=== PATIENT | female | born 1950 | race Two or more races ===

== ENCOUNTER 2017-03-15 19:47 | Inpatient (IN) | payer MEDICARE, OTHER ==
[~2017-03-15] VITALS: Ht 157.5 cm; Wt 121.4 kg
[2017-03-15] MEDS ORDERED: IPRATROPIUM BROM 0.5 MG/2.5ML INH SOL HHN ONE (20:45)
[2017-03-15] MEDS ORDERED: ALBUTEROL SULF 2.5 MG/0.5ML(0.5%) NEB SOLN HHN ONE (20:45)
[2017-03-15] MEDS ORDERED: methylPREDNISolone SOD SUCC 125 MG/2 ML VL IV ONE (20:45)
[2017-03-15 21:14] LABS: Basophils # (auto) 0.1 uL; Basophils % (auto) 1.3 % (0.0-2.0); Eosinophils # (auto) 0.1 uL; Eosinophils % (auto) 0.6 % (0.0-7.0); Hematocrit 36.6 % (36.0-46.0); Hemoglobin 12.2 g/dL (12.2-16.2); Lymphocytes # (auto) 1.2 uL; Lymphocytes % (auto) 11.4 % (10.0-50.0); Mean Corpuscular Hemoglobin 32.4 pg (28.0-32.0); Mean Corpuscular Hgb Conc. 33.4 g/dL (32.0-36.0); Mean Corpuscular Volume 97.2 fL (80.0-100.0); Monocytes % (auto) 9.6 % (0.0-12.0); Neutrophils # (auto) 7.9 uL; Neutrophils % (auto) 77.1 % (37.0-80.0); Platelet Count (auto) 180 10^3/uL (140-450); Red Blood Cells 3.76 10^6/uL (4.0-5.20); White Blood Cell 10.2 10^3/uL (4.4-10.8)
[2017-03-15 21:33] LABS: Alanine Aminotransferase 19 U/L (13-56); Albumin 3.2 g/dL (3.4-5.0); Alkaline Phosphatase 51 U/L (45-117); Anion Gap 7 (5-15); Aspartate Aminotransferase 17 U/L (15-37); BUN/Creatinine Ratio 16.1; Bilirubin, Total 1.3 mg/dL (0.2-1.0); Blood Urea Nitrogen 14 mg/dL (7-18); Calcium 8.8 mg/dL (8.5-10.1); Carbon Dioxide 34 mmol/L (21-32); Chloride 95 mmol/L (98-107); GFR African American 84 mL/min; GFR Non-African American 69 mL/min; Glucose 117 mg/dL (74-106); Magnesium 1.7 mg/dL (1.6-2.6); Potassium 4.2 mmol/L (3.5-5.1); Sodium 136 mmol/L (136-145); Total Protein 8.4 g/dL (6.4-8.2)
[2017-03-15] MEDS ORDERED: cefTRIAXone 1GM/10ml IVPUSH 10 ML IV ONE (23:30)
[2017-03-15] MEDS ORDERED: methylPREDNISolone SOD SUCC 125 MG/2 ML VL ONE (23:36)
[2017-03-16] VITALS (7 sets, daily range): BP systolic 128–162; BP diastolic 69–91
[2017-03-16] MEDS ORDERED: MORPHINE SULFATE 10 MG/ML INJ 1ML SDV IV PRN
[2017-03-16] MEDS ORDERED: NITROGLYCERIN 0.4 MG SL TAB SL PRN
[2017-03-16] MEDS ORDERED: DOCUSATE SOD 100 MG CAP PO PRN
[2017-03-16] MEDS ORDERED: AZITHROMYCIN 500MG/ 250ML 250 ML IV ONE ×2 (00:38)
[2017-03-16] MEDS ORDERED: AZITHROMYCIN 500MG/ 250ML 250 ML IV SCH (10:00)
[2017-03-16 10:22] LABS: Basophils # (auto) 0 uL; Basophils % (auto) 0.1 % (0.0-2.0); Eosinophils # (auto) 0 uL; Hematocrit 36.2 % (36.0-46.0); Lymphocytes # (auto) 0.6 uL; Lymphocytes % (auto) 6.7 % (10.0-50.0); Mean Corpuscular Hgb Conc. 33.1 g/dL (32.0-36.0); Mean Corpuscular Volume 96.8 fL (80.0-100.0); Monocytes # (auto) 0.1 uL; Monocytes % (auto) 1.7 % (0.0-12.0); Neutrophils # (auto) 7.9 uL; Neutrophils % (auto) 91.5 % (37.0-80.0); Platelet Count (auto) 172 10^3/uL (140-450); Red Blood Cells 3.73 10^6/uL (4.0-5.20); Red Cell Distribution Width 13.9 % (11.8-14.3); White Blood Cell 8.6 10^3/uL (4.4-10.8)
[2017-03-16 10:46] LABS: Albumin 2.9 g/dL (3.4-5.0); Bilirubin, Total 0.9 mg/dL (0.2-1.0); Calcium 8.6 mg/dL (8.5-10.1); Potassium 3.9 mmol/L (3.5-5.1); Total Protein 8.3 g/dL (6.4-8.2)
[2017-03-16] MEDS: cefTRIAXone 1GM/10ml IVPUSH 10 ML IV SCH (11:16)
[2017-03-16] MEDS: SPIRONOLACTONE 25 MG TAB PO SCH (11:17)
[2017-03-16] MEDS: CARVEDILOL 3.125 MG TAB PO SCH ×2 (11:17→21:50)
[2017-03-16] MEDS: FAMOTIDINE 20 MG TAB PO SCH ×2 (11:18→21:48)
[2017-03-16] MEDS: LISINOPRIL 10 MG TAB PO SCH (11:18)
[2017-03-16] MEDS: FUROSEMIDE 40 MG TAB PO SCH (11:18)
[2017-03-16] MEDS: ENOXAPARIN SOD 40 MG/0.4 ML SYRINGE SC SCH (11:19)
[2017-03-16] MEDS: HYDROcodone-ACET 5/325MG TAB PO PRN ×2 (11:43→17:31)
[2017-03-16] MEDS: CYCLOBENZAPRINE HCL 10 MG TAB PO PRN ×2 (11:43→17:47)
[2017-03-16] MEDS: MORPHINE SULFATE 10 MG/ML INJ 1ML SDV IV PRN ×2 (12:23→20:05)
[2017-03-16] MEDS ORDERED: DEXTROSE (50%) 50ML SYRG IV PRN (15:00)
[2017-03-16] MEDS ORDERED: VANCOMYCIN PER PHARMACY 0 MG IV SCH (16:15)
[2017-03-16] MEDS: METHADONE HCL 10 MG TAB PO SCH (17:06)
[2017-03-16] MEDS: InsuLIN REG 1unit/0.01ml Soln (100units/ml) SC SCH ×2 (17:21→21:56)
[2017-03-16] MEDS: VANCOMYCIN 1,250 MG in D5W 5% 250 ML IV SCH (17:22)
[2017-03-16] MEDS: ACCU-CHEK COMFORT CURVE STRIP VI SCH ×2 (17:23→21:56)
[2017-03-16] MEDS: IPRATROPIUM BROM 0.5 MG/2.5ML INH SOL NEB SCH ×2 (19:22→22:43)
[2017-03-16] MEDS: ALBUTEROL SULF 2.5 MG/0.5ML(0.5%) NEB SOLN NEB SCH ×2 (19:23→22:43)
[2017-03-16 23:30] LABS: Urine Bacteria FEW /hpf (None Seen); Urine Blood Negative /uL (Negative); Urine Specific Gravity 1.021 (1.001-1.035); Urine WBC 1 /hpf (0 - 5)
[2017-03-17] MEDS ORDERED: FURO40TA4 PO (00:43)
[2017-03-17] MEDS ORDERED: FLUT0.05 NAS (00:43)
[2017-03-17] MEDS ORDERED: POTA20TA53 PO (00:43)
[2017-03-17] MEDS ORDERED: ALBU1SYP NEB (00:43)
[2017-03-17] MEDS ORDERED: CYCL1TAB18 PO (00:43)
[2017-03-17] MEDS ORDERED: SENN1TAB14 PO (00:43)
[2017-03-17] MEDS ORDERED: IPRIH INH (00:43)
[2017-03-17] MEDS ORDERED: DIPH25CA66 PO (00:43)
[2017-03-17] MEDS ORDERED: ASPI81TA27 PO (00:43)
[2017-03-17] MEDS ORDERED: LISI10TA6 PO (00:43)
[2017-03-17] MEDS ORDERED: CARV6.2551 PO (00:43)
[2017-03-17] MEDS ORDERED: SPIR25TA89 PO (00:43)
[2017-03-17] MEDS ORDERED: METH10T GT (00:43)
[2017-03-17] MEDS ORDERED: CAR3125T OR (00:43)
[2017-03-17] MEDS ORDERED: ALBU1SYP PO (00:43)
[2017-03-17] MEDS ORDERED: LEVO50TA7 PO (00:43)
[2017-03-17] MEDS: MORPHINE SULFATE 10 MG/ML INJ 1ML SDV IV PRN ×5 (01:05→22:07)
[2017-03-17] MEDS: ACETAMINOPHEN 325 MG TAB PO PRN ×2 (01:08→08:22)
[2017-03-17] MEDS: InsuLIN REG 1unit/0.01ml Soln (100units/ml) SC SCH ×5 (02:00→23:48)
[2017-03-17] MEDS: ACCU-CHEK COMFORT CURVE STRIP VI SCH ×5 (02:00→23:49)
[2017-03-17] MEDS: IPRATROPIUM BROM 0.5 MG/2.5ML INH SOL NEB SCH ×6 (02:39→22:38)
[2017-03-17] MEDS: ALBUTEROL SULF 2.5 MG/0.5ML(0.5%) NEB SOLN NEB SCH ×6 (02:39→22:38)
[2017-03-17 04:29] VITALS: BP 142/79
[2017-03-17] MEDS: HYDROcodone-ACET 5/325MG TAB PO PRN ×2 (04:39→09:01)
[2017-03-17] MEDS: VANCOMYCIN 1,250 MG in D5W 5% 250 ML IV SCH ×2 (05:45→18:15)
[2017-03-17] MEDS: CYCLOBENZAPRINE HCL 10 MG TAB PO PRN (06:44)
[2017-03-17 08:11] VITALS: BP 170/86
[2017-03-17 08:33] LABS: Basophils # (auto) 0 uL; Basophils % (auto) 0.1 % (0.0-2.0); Eosinophils # (auto) 0 uL; Hematocrit 37.2 % (36.0-46.0); Hemoglobin 12.3 g/dL (12.2-16.2); Lymphocytes # (auto) 1.1 uL; Lymphocytes % (auto) 8.7 % (10.0-50.0); Mean Corpuscular Hemoglobin 32.3 pg (28.0-32.0); Mean Corpuscular Hgb Conc. 33.1 g/dL (32.0-36.0); Mean Corpuscular Volume 97.4 fL (80.0-100.0); Monocytes # (auto) 1.4 uL; Neutrophils # (auto) 9.9 uL; Neutrophils % (auto) 80.2 % (37.0-80.0); Nucleated Red Blood Cells % 0.1 %; Platelet Count (auto) 197 10^3/uL (140-450); Red Blood Cells 3.82 10^6/uL (4.0-5.20); Red Cell Distribution Width 13.9 % (11.8-14.3); White Blood Cell 12.3 10^3/uL (4.4-10.8)
[2017-03-17 08:36] LABS: Albumin 3.1 g/dL (3.4-5.0); BUN/Creatinine Ratio 24.7; Bilirubin, Total 0.7 mg/dL (0.2-1.0); Calcium 8.9 mg/dL (8.5-10.1); Potassium 3.8 mmol/L (3.5-5.1); Total Protein 8.7 g/dL (6.4-8.2)
[2017-03-17] MEDS: cefTRIAXone 1GM/10ml IVPUSH 10 ML IV SCH (08:51)
[2017-03-17] MEDS ORDERED: VANCOMYCIN PER PHARMACY 0 MG IV SCH (09:15)
[2017-03-17] MEDS ORDERED: VANCOMYCIN 1GM/250ML 250 ML IV ONE (09:15)
[2017-03-17] MEDS: ENOXAPARIN SOD 40 MG/0.4 ML SYRINGE SC SCH (09:46)
[2017-03-17] MEDS: CARVEDILOL 3.125 MG TAB PO SCH ×2 (09:48→21:40)
[2017-03-17] MEDS: SPIRONOLACTONE 25 MG TAB PO SCH (09:49)
[2017-03-17] MEDS: FUROSEMIDE 40 MG TAB PO SCH (09:49)
[2017-03-17] MEDS: FAMOTIDINE 20 MG TAB PO SCH ×2 (09:49→21:40)
[2017-03-17] MEDS: AZITHROMYCIN 250 MG TAB PO SCH (09:49)
[2017-03-17] MEDS: LISINOPRIL 10 MG TAB PO SCH (09:49)
[2017-03-17] MEDS: METHADONE HCL 10 MG TAB PO SCH (09:50)
[2017-03-17] MEDS ORDERED: METHADONE HCL 10 MG TAB PO SCH (10:00)
[2017-03-17 12:36] VITALS: BP 155/94
[2017-03-17] MEDS: HYDROcodone-ACET 10/325MG TAB PO PRN ×2 (16:11→20:43)
[2017-03-17 17:00] VITALS: BP 151/103
[2017-03-17] MEDS ORDERED: DEXTROSE (50%) 50ML SYRG IV PRN (19:45)
[2017-03-17] MEDS: TEMAZEPAM 15 MG CAP PO PRN (21:40)
[2017-03-17 22:00] VITALS: BP 131/71
[2017-03-18] MEDS: IPRATROPIUM BROM 0.5 MG/2.5ML INH SOL NEB SCH ×6 (02:00→22:00)
[2017-03-18] MEDS: ALBUTEROL SULF 2.5 MG/0.5ML(0.5%) NEB SOLN NEB SCH ×6 (02:00→22:00)
[2017-03-18] MEDS: MORPHINE SULFATE 10 MG/ML INJ 1ML SDV IV PRN ×4 (02:07→17:36)
[2017-03-18] MEDS: HYDROcodone-ACET 10/325MG TAB PO PRN ×4 (04:20→20:40)
[2017-03-18 05:24] LABS: Basophils # (auto) 0 uL; Basophils % (auto) 0.5 % (0.0-2.0); Eosinophils # (auto) 0 uL; Eosinophils % (auto) 0.1 % (0.0-7.0); Hematocrit 35.6 % (36.0-46.0); Lymphocytes # (auto) 1.3 uL; Lymphocytes % (auto) 14.7 % (10.0-50.0); Mean Corpuscular Hemoglobin 32.5 pg (28.0-32.0); Mean Corpuscular Hgb Conc. 33.7 g/dL (32.0-36.0); Mean Corpuscular Volume 96.3 fL (80.0-100.0); Monocytes # (auto) 1.1 uL; Monocytes % (auto) 12.3 % (0.0-12.0); Neutrophils # (auto) 6.4 uL; Neutrophils % (auto) 72.4 % (37.0-80.0); Platelet Count (auto) 186 10^3/uL (140-450); Red Cell Distribution Width 13.8 % (11.8-14.3); White Blood Cell 8.9 10^3/uL (4.4-10.8)
[2017-03-18] MEDS: ACCU-CHEK COMFORT CURVE STRIP VI SCH ×4 (05:34→23:27)
[2017-03-18] MEDS: InsuLIN REG 1unit/0.01ml Soln (100units/ml) SC SCH ×4 (05:34→23:28)
[2017-03-18 05:38] VITALS: BP 131/85
[2017-03-18 05:40] LABS: Albumin 2.8 g/dL (3.4-5.0); BUN/Creatinine Ratio 22.4; Bilirubin, Total 0.9 mg/dL (0.2-1.0); Calcium 8.5 mg/dL (8.5-10.1); Potassium 3.8 mmol/L (3.5-5.1); Total Protein 8.1 g/dL (6.4-8.2)
[2017-03-18] MEDS: VANCOMYCIN 1,250 MG in D5W 5% 250 ML IV SCH (05:57)
[2017-03-18 08:47] VITALS: BP 143/75
[2017-03-18 08:48] VITALS: BP 151/86
[2017-03-18] MEDS: cefTRIAXone 1GM/10ml IVPUSH 10 ML IV SCH (09:57)
[2017-03-18] MEDS: VANCOMYCIN 1GM/250ML 250 ML IV SCH ×2 (09:58→21:51)
[2017-03-18] MEDS: ENOXAPARIN SOD 40 MG/0.4 ML SYRINGE SC SCH (09:59)
[2017-03-18] MEDS: ACETAMINOPHEN 325 MG TAB PO PRN ×2 (09:59→18:25)
[2017-03-18] MEDS: AZITHROMYCIN 250 MG TAB PO SCH (10:00)
[2017-03-18] MEDS: FAMOTIDINE 20 MG TAB PO SCH ×2 (10:00→21:51)
[2017-03-18] MEDS: SPIRONOLACTONE 25 MG TAB PO SCH (10:00)
[2017-03-18] MEDS: METHADONE HCL 10 MG TAB PO SCH (10:01)
[2017-03-18] MEDS: FUROSEMIDE 40 MG TAB PO SCH (10:02)
[2017-03-18] MEDS: LISINOPRIL 10 MG TAB PO SCH (10:02)
[2017-03-18] MEDS: CARVEDILOL 3.125 MG TAB PO SCH ×2 (10:02→21:51)
[2017-03-18 13:07] VITALS: BP 145/88
[2017-03-18 17:08] VITALS: BP 151/78
[2017-03-18 21:39] VITALS: BP 127/92
[2017-03-18] MEDS: TEMAZEPAM 15 MG CAP PO PRN (21:51)
[2017-03-19] MEDS: HYDROcodone-ACET 10/325MG TAB PO PRN ×4 (00:40→22:54)
[2017-03-19] MEDS: ALBUTEROL SULF 2.5 MG/0.5ML(0.5%) NEB SOLN NEB SCH ×6 (02:36→23:35)
[2017-03-19] MEDS: IPRATROPIUM BROM 0.5 MG/2.5ML INH SOL NEB SCH ×6 (02:36→23:35)
[2017-03-19] MEDS: MORPHINE SULFATE 10 MG/ML INJ 1ML SDV IV PRN ×4 (04:31→21:15)
[2017-03-19 04:54] VITALS: BP 153/88
[2017-03-19] MEDS: InsuLIN REG 1unit/0.01ml Soln (100units/ml) SC SCH ×3 (05:41→17:50)
[2017-03-19] MEDS: ACCU-CHEK COMFORT CURVE STRIP VI SCH ×3 (05:41→17:50)
[2017-03-19 08:33] VITALS: BP 145/77
[2017-03-19] MEDS: cefTRIAXone 1GM/10ml IVPUSH 10 ML IV SCH (09:28)
[2017-03-19] MEDS: FAMOTIDINE 20 MG TAB PO SCH ×2 (09:29→22:19)
[2017-03-19] MEDS: SPIRONOLACTONE 25 MG TAB PO SCH (09:30)
[2017-03-19] MEDS: AZITHROMYCIN 250 MG TAB PO SCH (09:30)
[2017-03-19] MEDS: LISINOPRIL 10 MG TAB PO SCH (09:31)
[2017-03-19] MEDS: CARVEDILOL 3.125 MG TAB PO SCH ×2 (09:31→22:18)
[2017-03-19] MEDS: FUROSEMIDE 40 MG TAB PO SCH (09:31)
[2017-03-19] MEDS: ENOXAPARIN SOD 40 MG/0.4 ML SYRINGE SC SCH (09:33)
[2017-03-19] MEDS: METHADONE HCL 10 MG TAB PO SCH (09:33)
[2017-03-19 09:44] LABS: Albumin 2.6 g/dL (3.4-5.0); BUN/Creatinine Ratio 21.7; Bilirubin, Total 0.8 mg/dL (0.2-1.0); Calcium 8.6 mg/dL (8.5-10.1); Potassium 3.8 mmol/L (3.5-5.1)
[2017-03-19] MEDS: VANCOMYCIN 1GM/250ML 250 ML IV SCH ×2 (10:01→22:19)
[2017-03-19 13:06] VITALS: BP 164/107
[2017-03-19 17:24] VITALS: BP 165/99
[2017-03-19 20:00] VITALS: BP 139/88
[2017-03-19 21:50] VITALS: BP 139/88
[2017-03-19] MEDS: TEMAZEPAM 15 MG CAP PO SCH (22:19)
[2017-03-20] VITALS (9 sets, daily range): BP systolic 115–157; BP diastolic 77–96
[2017-03-20] MEDS: ALBUTEROL SULF 2.5 MG/0.5ML(0.5%) NEB SOLN NEB SCH ×6 (02:00→21:51)
[2017-03-20] MEDS: IPRATROPIUM BROM 0.5 MG/2.5ML INH SOL NEB SCH ×6 (02:00→21:51)
[2017-03-20] MEDS: InsuLIN REG 1unit/0.01ml Soln (100units/ml) SC SCH ×4 (06:00→17:53)
[2017-03-20] MEDS: ACCU-CHEK COMFORT CURVE STRIP VI SCH ×4 (06:13→17:53)
[2017-03-20] MEDS: cefTRIAXone 1GM/10ml IVPUSH 10 ML IV SCH (09:54)
[2017-03-20] MEDS: VANCOMYCIN 1GM/250ML 250 ML IV SCH ×2 (09:55→22:13)
[2017-03-20] MEDS: SPIRONOLACTONE 25 MG TAB PO SCH (09:55)
[2017-03-20] MEDS: FUROSEMIDE 40 MG TAB PO SCH (09:55)
[2017-03-20] MEDS: CARVEDILOL 3.125 MG TAB PO SCH ×2 (09:55→22:13)
[2017-03-20] MEDS: FAMOTIDINE 20 MG TAB PO SCH ×2 (09:56→22:14)
[2017-03-20] MEDS: METHADONE HCL 10 MG TAB PO SCH (09:56)
[2017-03-20] MEDS: AZITHROMYCIN 250 MG TAB PO SCH (09:56)
[2017-03-20] MEDS: LISINOPRIL 10 MG TAB PO SCH (09:56)
[2017-03-20] MEDS: ENOXAPARIN SOD 40 MG/0.4 ML SYRINGE SC SCH (09:57)
[2017-03-20] MEDS: HYDROcodone-ACET 10/325MG TAB PO PRN (12:53)
[2017-03-20] MEDS: CYCLOBENZAPRINE HCL 10 MG TAB PO PRN (12:53)
[2017-03-20] MEDS: METHOCARBAMOL 500 MG TAB PO SCH ×2 (15:11→22:14)
[2017-03-20] MEDS: MORPHINE SULFATE 10 MG/ML INJ 1ML SDV IV PRN (17:53)
[2017-03-20] MEDS: TEMAZEPAM 15 MG CAP PO SCH (22:14)
[2017-03-21] MEDS: IPRATROPIUM BROM 0.5 MG/2.5ML INH SOL NEB SCH ×6 (02:00→22:08)
[2017-03-21] MEDS: ALBUTEROL SULF 2.5 MG/0.5ML(0.5%) NEB SOLN NEB SCH ×6 (02:00→22:08)
[2017-03-21] MEDS: MORPHINE SULFATE 10 MG/ML INJ 1ML SDV IV PRN ×2 (03:05→11:18)
[2017-03-21 05:00] VITALS: BP 112/64
[2017-03-21] MEDS: ACCU-CHEK COMFORT CURVE STRIP VI SCH ×5 (05:55→23:56)
[2017-03-21] MEDS: InsuLIN REG 1unit/0.01ml Soln (100units/ml) SC SCH ×5 (05:55→23:56)
[2017-03-21 06:13] LABS: Basophils # (auto) 0.1 uL; Basophils % (auto) 1.1 % (0.0-2.0); Eosinophils # (auto) 0.1 uL; Eosinophils % (auto) 1.6 % (0.0-7.0); Hematocrit 37.5 % (36.0-46.0); Hemoglobin 12.5 g/dL (12.2-16.2); Lymphocytes # (auto) 1.7 uL; Mean Corpuscular Hemoglobin 32.2 pg (28.0-32.0); Mean Corpuscular Hgb Conc. 33.4 g/dL (32.0-36.0); Mean Corpuscular Volume 96.4 fL (80.0-100.0); Monocytes # (auto) 0.8 uL; Neutrophils % (auto) 64.3 % (37.0-80.0); Nucleated Red Blood Cells % 0.1 %; Platelet Count (auto) 249 10^3/uL (140-450); Red Blood Cells 3.89 10^6/uL (4.0-5.20); White Blood Cell 7.7 10^3/uL (4.4-10.8)
[2017-03-21] MEDS: METHOCARBAMOL 500 MG TAB PO SCH ×3 (06:33→22:04)
[2017-03-21 08:00] VITALS: BP 148/97
[2017-03-21 09:09] VITALS: BP 148/97
[2017-03-21] MEDS: SPIRONOLACTONE 25 MG TAB PO SCH (10:10)
[2017-03-21] MEDS: AZITHROMYCIN 250 MG TAB PO SCH (10:11)
[2017-03-21] MEDS: CARVEDILOL 3.125 MG TAB PO SCH ×2 (10:11→22:05)
[2017-03-21] MEDS: FAMOTIDINE 20 MG TAB PO SCH ×2 (10:12→22:04)
[2017-03-21] MEDS: LISINOPRIL 10 MG TAB PO SCH (10:12)
[2017-03-21] MEDS: ENOXAPARIN SOD 40 MG/0.4 ML SYRINGE SC SCH (10:13)
[2017-03-21] MEDS: FUROSEMIDE 40 MG TAB PO SCH (10:13)
[2017-03-21] MEDS: METHADONE HCL 10 MG TAB PO SCH (10:13)
[2017-03-21] MEDS: cefTRIAXone 1GM/10ml IVPUSH 10 ML IV SCH (11:16)
[2017-03-21] MEDS: VANCOMYCIN 1GM/250ML 250 ML IV SCH ×2 (11:16→22:05)
[2017-03-21 12:20] VITALS: BP 136/58
[2017-03-21] MEDS: HYDROcodone-ACET 10/325MG TAB PO PRN (14:56)
[2017-03-21 16:05] VITALS: BP 112/61
[2017-03-21 22:00] VITALS: BP 111/42
[2017-03-21] MEDS: TEMAZEPAM 15 MG CAP PO SCH (22:04)
[2017-03-22] MEDS: IPRATROPIUM BROM 0.5 MG/2.5ML INH SOL NEB SCH ×6 (02:00→22:12)
[2017-03-22] MEDS: ALBUTEROL SULF 2.5 MG/0.5ML(0.5%) NEB SOLN NEB SCH ×6 (02:00→22:12)
[2017-03-22 05:00] VITALS: BP 154/69
[2017-03-22] MEDS: InsuLIN REG 1unit/0.01ml Soln (100units/ml) SC SCH ×4 (05:28→23:49)
[2017-03-22] MEDS: METHOCARBAMOL 500 MG TAB PO SCH ×3 (05:28→21:35)
[2017-03-22] MEDS: ACCU-CHEK COMFORT CURVE STRIP VI SCH ×4 (05:28→23:49)
[2017-03-22 07:51] LABS: Albumin 2.4 g/dL (3.4-5.0); BUN/Creatinine Ratio 21.6; Bilirubin, Total 0.7 mg/dL (0.2-1.0); Calcium 8.7 mg/dL (8.5-10.1); Potassium 3.8 mmol/L (3.5-5.1); Total Protein 7.9 g/dL (6.4-8.2)
[2017-03-22 08:00] VITALS: BP 112/60
[2017-03-22 08:35] VITALS: BP 112/60
[2017-03-22] MEDS: cefTRIAXone 1GM/10ml IVPUSH 10 ML IV SCH (08:35)
[2017-03-22] MEDS: LISINOPRIL 10 MG TAB PO SCH (10:00)
[2017-03-22] MEDS: VANCOMYCIN 1GM/250ML 250 ML IV SCH ×2 (10:00→16:55)
[2017-03-22] MEDS: CARVEDILOL 3.125 MG TAB PO SCH ×2 (10:00→21:35)
[2017-03-22] MEDS: ENOXAPARIN SOD 40 MG/0.4 ML SYRINGE SC SCH (10:44)
[2017-03-22] MEDS ORDERED: ADENOSINE 102 MG in GIVE UN-DILUTED 0 ML IV ONE (11:30)
[2017-03-22 12:43] VITALS: BP 131/66
[2017-03-22] MEDS ORDERED: IPRATROPIUM BROM 0.5 MG/2.5ML INH SOL ONE (13:17)
[2017-03-22] MEDS ORDERED: ALBUTEROL SULF 2.5 MG/0.5ML(0.5%) NEB SOLN ONE (13:17)
[2017-03-22] MEDS: METHADONE HCL 10 MG TAB PO SCH (15:24)
[2017-03-22] MEDS: FAMOTIDINE 20 MG TAB PO SCH ×2 (15:25→21:35)
[2017-03-22] MEDS: AZITHROMYCIN 250 MG TAB PO SCH (15:25)
[2017-03-22] MEDS: SPIRONOLACTONE 25 MG TAB PO SCH (15:25)
[2017-03-22] MEDS: FUROSEMIDE 40 MG TAB PO SCH (15:26)
[2017-03-22] MEDS: CYCLOBENZAPRINE HCL 10 MG TAB PO PRN (15:31)
[2017-03-22] MEDS: MORPHINE SULFATE 10 MG/ML INJ 1ML SDV IV PRN (15:41)
[2017-03-22] MEDS: HYDROcodone-ACET 10/325MG TAB PO PRN (16:12)
[2017-03-22 16:41] VITALS: BP 123/72
[2017-03-22] MEDS: TEMAZEPAM 15 MG CAP PO SCH (21:35)
[2017-03-22 22:31] VITALS: BP 133/74
[2017-03-23] MEDS: ALBUTEROL SULF 2.5 MG/0.5ML(0.5%) NEB SOLN NEB SCH ×6 (02:00→22:01)
[2017-03-23] MEDS: IPRATROPIUM BROM 0.5 MG/2.5ML INH SOL NEB SCH ×6 (02:00→22:01)
[2017-03-23] MEDS: ACCU-CHEK COMFORT CURVE STRIP VI SCH ×3 (05:27→18:00)
[2017-03-23] MEDS: METHOCARBAMOL 500 MG TAB PO SCH ×3 (05:28→21:51)
[2017-03-23] MEDS: InsuLIN REG 1unit/0.01ml Soln (100units/ml) SC SCH ×3 (05:28→18:00)
[2017-03-23 05:44] VITALS: BP 132/72
[2017-03-23 05:49] LABS: Basophils # (auto) 0 uL; Basophils % (auto) 0.3 % (0.0-2.0); Eosinophils # (auto) 0.2 uL; Eosinophils % (auto) 3.3 % (0.0-7.0); Hematocrit 35.6 % (36.0-46.0); Hemoglobin 11.8 g/dL (12.2-16.2); Lymphocytes # (auto) 1.2 uL; Lymphocytes % (auto) 17.5 % (10.0-50.0); Mean Corpuscular Hemoglobin 32.6 pg (28.0-32.0); Mean Corpuscular Hgb Conc. 33.2 g/dL (32.0-36.0); Mean Corpuscular Volume 98.1 fL (80.0-100.0); Monocytes # (auto) 0.7 uL; Monocytes % (auto) 9.8 % (0.0-12.0); Neutrophils # (auto) 4.6 uL; Neutrophils % (auto) 69.1 % (37.0-80.0); Nucleated Red Blood Cells % 0.1 %; Platelet Count (auto) 236 10^3/uL (140-450); Red Blood Cells 3.62 10^6/uL (4.0-5.20); Red Cell Distribution Width 13.9 % (11.8-14.3); White Blood Cell 6.7 10^3/uL (4.4-10.8)
[2017-03-23 05:58] LABS: Calcium 9.1 mg/dL (8.5-10.1); Potassium 3.5 mmol/L (3.5-5.1)
[2017-03-23 08:35] VITALS: BP 151/62
[2017-03-23] MEDS: ENOXAPARIN SOD 40 MG/0.4 ML SYRINGE SC SCH (09:56)
[2017-03-23] MEDS: cefTRIAXone 1GM/10ml IVPUSH 10 ML IV SCH (09:57)
[2017-03-23] MEDS: SPIRONOLACTONE 25 MG TAB PO SCH (09:58)
[2017-03-23] MEDS: METHADONE HCL 10 MG TAB PO SCH (09:58)
[2017-03-23] MEDS: AZITHROMYCIN 250 MG TAB PO SCH (09:59)
[2017-03-23] MEDS: CARVEDILOL 3.125 MG TAB PO SCH ×2 (10:00→21:52)
[2017-03-23] MEDS: LISINOPRIL 10 MG TAB PO SCH (10:00)
[2017-03-23] MEDS: FAMOTIDINE 20 MG TAB PO SCH ×2 (10:41→21:51)
[2017-03-23] MEDS: CYCLOBENZAPRINE HCL 10 MG TAB PO PRN (10:41)
[2017-03-23] MEDS: FUROSEMIDE 40 MG TAB PO SCH (10:42)
[2017-03-23] MEDS: VANCOMYCIN 1GM/250ML 250 ML IV SCH (10:43)
[2017-03-23 12:59] VITALS: BP 181/90
[2017-03-23] MEDS: HYDROcodone-ACET 10/325MG TAB PO PRN (14:55)
[2017-03-23 17:08] VITALS: BP 127/69
[2017-03-23] MEDS: TEMAZEPAM 15 MG CAP PO SCH (21:51)
[2017-03-23 22:30] VITALS: BP 136/74
[2017-03-23 23:09] VITALS: BP 136/74
[2017-03-24] MEDS: ACCU-CHEK COMFORT CURVE STRIP VI SCH ×3 (00:21→12:10)
[2017-03-24] MEDS: ALBUTEROL SULF 2.5 MG/0.5ML(0.5%) NEB SOLN NEB SCH ×4 (02:00→14:25)
[2017-03-24] MEDS: IPRATROPIUM BROM 0.5 MG/2.5ML INH SOL NEB SCH ×4 (02:00→14:25)
[2017-03-24] MEDS: VANCOMYCIN 1GM/250ML 250 ML IV SCH (03:48)
[2017-03-24 05:10] VITALS: BP 96/58
[2017-03-24] MEDS: HYDROcodone-ACET 10/325MG TAB PO PRN (05:26)
[2017-03-24] MEDS: METHOCARBAMOL 500 MG TAB PO SCH ×2 (05:26→14:00)
[2017-03-24] MEDS: InsuLIN REG 1unit/0.01ml Soln (100units/ml) SC SCH ×3 (05:33→12:00)
[2017-03-24 05:45] LABS: Hematocrit 34.8 % (36.0-46.0); Hemoglobin 11.5 g/dL (12.2-16.2); Mean Corpuscular Volume 96.8 fL (80.0-100.0); Platelet Count (auto) 257 10^3/uL (140-450); Red Cell Distribution Width 13.6 % (11.8-14.3); White Blood Cell 5.6 10^3/uL (4.4-10.8)
[2017-03-24 05:59] LABS: Basophils % (manual) 0 (0.0-2.0)
[2017-03-24 06:00] LABS: Blast Cells 0; Myelocytes % 0; Promyelocytes % 0; Reactive Lymphocytes 0
[2017-03-24 06:02] LABS: Calcium 8.4 mg/dL (8.5-10.1); Potassium 3.5 mmol/L (3.5-5.1)
[2017-03-24 06:50] LABS: Band Neutrophils % (manual) 2; Eosinophils % (manual) 4 (0-7); Lymphocytes % (manual) 24 (10.0-50.0); Metamyelocytes % 1; Monocytes % (manual) 7 (0-12)
[2017-03-24 08:00] VITALS: BP_SYST 117; BP_SYST 96; BP_DIAS 58
[2017-03-24] MEDS: CARVEDILOL 3.125 MG TAB PO SCH (10:32)
[2017-03-24] MEDS: LISINOPRIL 10 MG TAB PO SCH (10:33)
[2017-03-24] MEDS: FUROSEMIDE 40 MG TAB PO SCH (10:34)
[2017-03-24] MEDS: FAMOTIDINE 20 MG TAB PO SCH (10:35)
[2017-03-24] MEDS: SPIRONOLACTONE 25 MG TAB PO SCH (10:36)
[2017-03-24] MEDS: METHADONE HCL 10 MG TAB PO SCH (10:38)
[2017-03-24] MEDS: ENOXAPARIN SOD 40 MG/0.4 ML SYRINGE SC SCH (10:38)
[2017-03-24] MEDS: MORPHINE SULFATE 10 MG/ML INJ 1ML SDV IV PRN (12:11)
[2017-03-24 13:00] VITALS: BP 108/69
[2017-03-24 15:25] VITALS: BP 108/69
== END 2017-03-24 17:14 | disposition home health service (06) | DRG 720 ==
LOC: ER 03-16 → TELE 03-16 00:01 → TELE-CENTR 03-16 02:47
PROVIDERS: ADMIT Nurse Practitioner; ATTEND Family Medicine
DX: A41.02 Sepsis due to Methicillin resistant Staphylococcus aureus (principal); I50.43 Acute on chronic combined systolic (congestive) and diastolic (congestive) heart failure; J18.9 Pneumonia, unspecified organism; J44.0 Chronic obstructive pulmonary disease with (acute) lower respiratory infection; I11.0 Hypertensive heart disease with heart failure; Z99.81 Dependence on supplemental oxygen; F11.20 Opioid dependence, uncomplicated; J44.1 Chronic obstructive pulmonary disease with (acute) exacerbation; L97.909 Non-pressure chronic ulcer of unspecified part of unspecified lower leg with unspecified severity; E66.9 Obesity, unspecified; G89.29 Other chronic pain; I83.009 Varicose veins of unspecified lower extremity with ulcer of unspecified site; L97.918 Non-pressure chronic ulcer of unspecified part of right lower leg with other specified severity; L97.928 Non-pressure chronic ulcer of unspecified part of left lower leg with other specified severity; L03.116 Cellulitis of left lower limb; L03.115 Cellulitis of right lower limb; R06.03 Acute respiratory distress; R73.9 Hyperglycemia, unspecified; G47.00 Insomnia, unspecified; K59.00 Constipation, unspecified; L02.416 Cutaneous abscess of left lower limb; L02.415 Cutaneous abscess of right lower limb; Z68.42 Body mass index [BMI] 45.0-49.9, adult; Z82.49 Family history of ischemic heart disease and other diseases of the circulatory system
CPT/HCPCS: 36415; 71045; 78452; 80048; 80053; 80202; 81001; 82565; 82962; 83036; 83605; 83735; 83880; 84484; 85007; 85025; 85027; 85379; 87040; 87070; 87077; 87081; 87147; 87186; 87205; 87400; 93005; 93017; 93306; 93970; 94640; 94761; 96374; 96375; 97110; J0153; J1815; J7060

== ENCOUNTER → 2017-04-15 | Outpatient (CLI) | payer MEDICARE, OTHER ==
[~2017-04-15] MED LIST: ALBU1SYP PO; ASPI81TA27 PO; CARV6.2551 PO; CYCL1TAB18 PO; DIPH25CA66 PO; FLUT0.05 NAS; FURO40TA4 PO; FUROSEMIDE INJECTION 10 ML ONE; FUROSEMIDE INJECTION 100 MG in SODIUM CHL 0.9% 100 ML IV SCH; IPRIH INH; LEVO50TA7 PO; LISI10TA6 PO; METH10T GT; POTA20TA53 PO; SENN1TAB14 PO; SPIR25TA89 PO
[2017-04-15 12:47] VITALS: BP 109/64
[2017-04-15 16:45] LABS: Basophils # (auto) 0 uL; Basophils % (auto) 0.5 % (0.0-2.0); Eosinophils # (auto) 0.2 uL; Eosinophils % (auto) 4.1 % (0.0-7.0); Hematocrit 36.3 % (36.0-46.0); Hemoglobin 11.9 g/dL (12.2-16.2); Lymphocytes # (auto) 1.4 uL; Mean Corpuscular Hemoglobin 31.7 pg (28.0-32.0); Mean Corpuscular Hgb Conc. 32.9 g/dL (32.0-36.0); Mean Corpuscular Volume 96.3 fL (80.0-100.0); Monocytes # (auto) 0.6 uL; Monocytes % (auto) 13.6 % (0.0-12.0); Neutrophils # (auto) 2.2 uL; Neutrophils % (auto) 49.8 % (37.0-80.0); Nucleated Red Blood Cells % 2.6 %; Platelet Count (auto) 180 10^3/uL (140-450); Red Blood Cells 3.77 10^6/uL (4.0-5.20); Red Cell Distribution Width 14.1 % (11.8-14.3); White Blood Cell 4.4 10^3/uL (4.4-10.8)
[2017-04-15 16:52] LABS: Potassium 4.5 mmol/L (3.5-5.1)
[2017-04-15 16:56] LABS: Albumin 3.3 g/dL (3.4-5.0); Magnesium 2.1 mg/dL (1.6-2.6)
[2017-04-15 16:59] LABS: Bilirubin, Total 0.4 mg/dL (0.2-1.0); Total Protein 8.4 g/dL (6.4-8.2)
== END | disposition home or self-care (01) ==
LOC: CHF HDHVI 09:09
PROVIDERS: ATTEND Internal Medicine Cardiovascular Disease
DX: E83.40 Disorders of magnesium metabolism, unspecified (principal); I10 Essential (primary) hypertension; D64.9 Anemia, unspecified; N39.0 Urinary tract infection, site not specified
CPT/HCPCS: 36415; 80053; 83735; 85025; 93701; 96365; 96366; G0463; J1940

== ENCOUNTER → 2017-04-19 | Outpatient (CLI) | payer MEDICARE, OTHER ==
[2017-04-19] VITALS (7 sets, daily range): BP systolic 103–153; BP diastolic 65–85
[~2017-04-19] MED LIST changes: +ACETAMINOPHEN 500 MG TAB PO ONE; +ACETAMINOPHEN 500 MG TAB PO PRN; +FUROSEMIDE 100 MG/10ML VIAL IV ONE; -FUROSEMIDE INJECTION 100 MG in SODIUM CHL 0.9% 100 ML IV SCH; +POTASSIUM CHL 20 Meq TABLET PO ONE; +SODIUM CHLORIDE 0.9% 1,000 ML IV SCH
[2017-04-19 12:28] LABS: Magnesium 2.3 mg/dL (1.6-2.6); Potassium 4.9 mmol/L (3.5-5.1)
== END | disposition home or self-care (01) ==
LOC: CHF HDHVI 09:17
PROVIDERS: ATTEND Internal Medicine Cardiovascular Disease
DX: E83.40 Disorders of magnesium metabolism, unspecified (principal); E87.5 Hyperkalemia; R94.4 Abnormal results of kidney function studies
CPT/HCPCS: 36415; 82565; 83735; 84132; 84520; 94640; 96365; 96366; G0463; J1940; J7030; 96374

== ENCOUNTER 2017-04-22 23:55 | Inpatient (IN) | payer MEDICARE, OTHER ==
[~2017-04-22] VITALS: Ht 157.5 cm; Wt 115.2 kg
[~2017-04-22 23:55] MED LIST changes: -ACETAMINOPHEN 500 MG TAB PO ONE; -ACETAMINOPHEN 500 MG TAB PO PRN; -FUROSEMIDE 100 MG/10ML VIAL IV ONE; -FUROSEMIDE INJECTION 10 ML ONE; -POTASSIUM CHL 20 Meq TABLET PO ONE; -SODIUM CHLORIDE 0.9% 1,000 ML IV SCH
[2017-04-23 01:44] LABS: INR 1.18 (0.9-1.15); Partial Thromboplastin Time 35.1 sec (22.64-33.71); Prothrombin Time 12.9 sec (9.37-12.3)
[2017-04-23 01:45] LABS: Alanine Aminotransferase 19 U/L (13-56); Albumin 2.3 g/dL (3.4-5.0); Anion Gap 6 (5-15); Aspartate Aminotransferase 31 U/L (15-37); BUN/Creatinine Ratio 18.6; Basophils # (auto) 0 uL; Basophils % (auto) 0.1 % (0.0-2.0); Blood Urea Nitrogen 44 mg/dL (7-18); Calcium 8.7 mg/dL (8.5-10.1); Carbon Dioxide 33 mmol/L (21-32); Chloride 94 mmol/L (98-107); Eosinophils # (auto) 0 uL; Eosinophils % (auto) 0.1 % (0.0-7.0); GFR African American 26 mL/min; GFR Non-African American 22 mL/min; Glucose 100 mg/dL (74-106); Hematocrit 35.4 % (36.0-46.0); Hemoglobin 11.7 g/dL (12.2-16.2); Lymphocytes # (auto) 0.4 uL; Lymphocytes % (auto) 4.5 % (10.0-50.0); Magnesium 2.1 mg/dL (1.6-2.6); Mean Corpuscular Hemoglobin 31.5 pg (28.0-32.0); Mean Corpuscular Hgb Conc. 33.2 g/dL (32.0-36.0); Monocytes # (auto) 0.8 uL; Monocytes % (auto) 8.6 % (0.0-12.0); Neutrophils # (auto) 7.9 uL; Neutrophils % (auto) 86.7 % (37.0-80.0); Nucleated Red Blood Cells % 0.1 %; Platelet Count (auto) 228 10^3/uL (140-450); Potassium 4.4 mmol/L (3.5-5.1); Red Blood Cells 3.72 10^6/uL (4.0-5.20); Red Cell Distribution Width 13.7 % (11.8-14.3); Sodium 133 mmol/L (136-145); White Blood Cell 9.1 10^3/uL (4.4-10.8)
[2017-04-23 01:50] LABS: Alkaline Phosphatase 127 U/L (45-117); Bilirubin, Total 1.2 mg/dL (0.2-1.0); Total Protein 8.1 g/dL (6.4-8.2)
[2017-04-23 02:43] LABS: CRP High Sensitivity 31.8 mg/dL (< 0.3)
[2017-04-23] MEDS ORDERED: ENOXAPARIN SOD 120 MG/0.8 ML SYRINGE SC ONE (04:00)
[2017-04-23] MEDS ORDERED: IPRATROPIUM BROM 0.5 MG/2.5ML INH SOL NEB ONE (04:00)
[2017-04-23] MEDS ORDERED: ALBUTEROL SULF 2.5 MG/0.5ML(0.5%) NEB SOLN NEB ONE (04:00)
[2017-04-23] MEDS ORDERED: ALBUTEROL SULF 2.5 MG/0.5ML(0.5%) NEB SOLN NEB PRN (06:30)
[2017-04-23] MEDS ORDERED: MORPHINE SULFATE 4 MG/ML SYR/VIAL IV PRN (06:30)
[2017-04-23] MEDS ORDERED: IPRATROPIUM BROM 0.5 MG/2.5ML INH SOL NEB PRN (06:30)
[2017-04-23] MEDS ORDERED: ACETAMINOPHEN 500 MG TAB PO PRN (06:30)
[2017-04-23] MEDS ORDERED: NITROGLYCERIN 0.4 MG SL TAB SL PRN (06:30)
[2017-04-23] MEDS: HYDROcodone-ACET 5/325MG TAB PO PRN ×3 (07:27→17:38)
[2017-04-23] MEDS: LEVOTHYROXINE SODIUM 25 MCG TAB PO SCH (07:27)
[2017-04-23 07:56] LABS: Urine Bacteria NONE SEEN /hpf (None Seen); Urine Blood Negative /uL (Negative); Urine Specific Gravity 1.017 (1.001-1.035); Urine WBC 2 /hpf (0 - 5)
[2017-04-23 09:00] VITALS: BP 119/73
[2017-04-23 09:08] VITALS: BP 120/76
[2017-04-23] MEDS ORDERED: ENOXAPARIN SOD 120 MG/0.8 ML SYRINGE SC SCH (10:00)
[2017-04-23] MEDS: FUROSEMIDE 20 MG TAB PO SCH (10:05)
[2017-04-23] MEDS: CARVEDILOL 3.125 MG TAB PO SCH (10:06)
[2017-04-23] MEDS: ASPirin-EC 81 mg tab PO SCH (10:06)
[2017-04-23 12:14] VITALS: BP 119/74
[2017-04-23] MEDS ORDERED: AZITHROMYCIN 500MG/ 250ML 250 ML IV ONE (12:30)
[2017-04-23] MEDS ORDERED: cefTRIAXone 1GM/10ml IVPUSH 10 ML IV ONE (12:30)
[2017-04-23 13:00] VITALS: BP 130/92
[2017-04-23 17:03] VITALS: BP 143/71
[2017-04-24] MEDS: HYDROcodone-ACET 5/325MG TAB PO PRN ×2 (05:14)
[2017-04-24] MEDS ORDERED: ENOXAPARIN SOD 120 MG/0.8 ML SYRINGE SC SCH (06:00)
[2017-04-24 06:55] LABS: Basophils # (auto) 0 uL; Basophils % (auto) 0.1 % (0.0-2.0); Eosinophils # (auto) 0 uL; Eosinophils % (auto) 0.1 % (0.0-7.0); Hematocrit 36.1 % (36.0-46.0); Hemoglobin 12.2 g/dL (12.2-16.2); Lymphocytes # (auto) 0.7 uL; Mean Corpuscular Hemoglobin 31.8 pg (28.0-32.0); Mean Corpuscular Hgb Conc. 33.7 g/dL (32.0-36.0); Mean Corpuscular Volume 94.5 fL (80.0-100.0); Monocytes # (auto) 0.9 uL; Monocytes % (auto) 9.7 % (0.0-12.0); Neutrophils # (auto) 7.4 uL; Neutrophils % (auto) 82.1 % (37.0-80.0); Nucleated Red Blood Cells % 0.1 %; Platelet Count (auto) 263 10^3/uL (140-450); Red Blood Cells 3.82 10^6/uL (4.0-5.20); Red Cell Distribution Width 13.6 % (11.8-14.3)
[2017-04-24 07:08] LABS: BUN/Creatinine Ratio 26.6; Bilirubin, Total 0.8 mg/dL (0.2-1.0); Calcium 8.8 mg/dL (8.5-10.1); Potassium 3.6 mmol/L (3.5-5.1)
[2017-04-24] MEDS: LEVOTHYROXINE SODIUM 25 MCG TAB PO SCH (07:11)
[2017-04-24 08:47] VITALS: BP 140/74
[2017-04-24] MEDS ORDERED: cefTRIAXone 1GM/10ml IVPUSH 10 ML IV SCH (09:00)
[2017-04-24] MEDS ORDERED: AZITHROMYCIN 500MG/ 250ML 250 ML IV SCH (10:00)
[2017-04-24] MEDS ORDERED: ONDANSETRON HCL 4 MG/2 ML VIAL IV ONE (10:30)
[2017-04-24] MEDS ORDERED: MORPHINE SULFATE 4 MG/ML SYR/VIAL IV ONE (10:30)
[2017-04-24 12:40] VITALS: BP 138/74
[2017-04-24] MEDS: ASPirin-EC 81 mg tab PO SCH (13:00)
[2017-04-24] MEDS: CARVEDILOL 3.125 MG TAB PO SCH ×2 (13:00)
[2017-04-24] MEDS: FUROSEMIDE 20 MG TAB PO SCH (13:01)
== END 2017-04-24 15:13 | disposition home or self-care (01) | DRG 469 ==
LOC: ER 23:55 → TELE 23:56 → TELE-CENTR 04-23 07:40
PROVIDERS: ADMIT Nurse Practitioner Family; ATTEND Nurse Practitioner Family
DX: N17.0 Acute kidney failure with tubular necrosis (principal); J96.00 Acute respiratory failure, unspecified whether with hypoxia or hypercapnia; E43 Unspecified severe protein-calorie malnutrition; J18.1 Lobar pneumonia, unspecified organism; E87.3 Alkalosis; I13.0 Hypertensive heart and chronic kidney disease with heart failure and stage 1 through stage 4 chronic kidney disease, or unspecified chronic kidney disease; I50.9 Heart failure, unspecified; E87.8 Other disorders of electrolyte and fluid balance, not elsewhere classified; E87.1 Hypo-osmolality and hyponatremia; F11.20 Opioid dependence, uncomplicated; N18.4 Chronic kidney disease, stage 4 (severe); L03.115 Cellulitis of right lower limb; J44.0 Chronic obstructive pulmonary disease with (acute) lower respiratory infection; B19.20 Unspecified viral hepatitis C without hepatic coma; D63.8 Anemia in other chronic diseases classified elsewhere; G89.4 Chronic pain syndrome; R79.1 Abnormal coagulation profile; F41.9 Anxiety disorder, unspecified; L03.116 Cellulitis of left lower limb; J44.1 Chronic obstructive pulmonary disease with (acute) exacerbation; K59.00 Constipation, unspecified; E66.01 Morbid (severe) obesity due to excess calories; R74.8 Abnormal levels of other serum enzymes; Z79.899 Other long term (current) drug therapy; Z79.82 Long term (current) use of aspirin; Z68.42 Body mass index [BMI] 45.0-49.9, adult; Z82.49 Family history of ischemic heart disease and other diseases of the circulatory system; Z86.14 Personal history of Methicillin resistant Staphylococcus aureus infection
CPT/HCPCS: 36415; 36600; 71045; 80053; 81001; 82805; 83735; 83880; 84443; 84484; 85025; 85379; 85610; 85730; 86141; 87081; 93005; 93970; 94640; 94761; 96372; J2405

== ENCOUNTER 2017-10-27 08:56 | Emergency (ER) | payer MEDICARE, OTHER ==
[~2017-10-27] VITALS: Ht 157.5 cm; Wt 117.5 kg
[2017-10-27] MEDS ORDERED: MORPHINE SULFATE 4 MG/ML SYR/VIAL IV ONE (10:00)
[2017-10-27] MEDS ORDERED: SODIUM CHLORIDE 0.9% 1,000 ML IV ONE (10:00)
[2017-10-27] MEDS ORDERED: HYDROmorphone HCL 2 MG/ML VL IV ONE (10:30)
[2017-10-27] MEDS ORDERED: ONDANSETRON HCL 4 MG/2 ML VIAL IV ONE (11:45)
[2017-10-27 12:06] VITALS: BP 111/67
[2017-10-27 12:57] LABS: Hemoglobin 8.8 g/dL (12.2-16.2); Mean Corpuscular Hemoglobin 29.8 pg (28.0-32.0); Mean Corpuscular Hgb Conc. 31.5 g/dL (32.0-36.0); Mean Corpuscular Volume 94.6 fL (80.0-100.0); Platelet Count (auto) 325 10^3/uL (140-450); Red Blood Cells 2.96 10^6/uL (4.0-5.20); Red Cell Distribution Width 15.5 % (11.8-14.3); White Blood Cell 6.2 10^3/uL (4.4-10.8)
[2017-10-27 13:00] LABS: Basophils % (manual) 0 (0.0-2.0); Blast Cells 0; Metamyelocytes % 0; Myelocytes % 0; Promyelocytes % 0
[2017-10-27 13:12] LABS: Albumin 2.4 g/dL (3.4-5.0); BUN/Creatinine Ratio 20.4; Bilirubin, Total 0.3 mg/dL (0.2-1.0); Calcium 9.5 mg/dL (8.5-10.1); Potassium 4.9 mmol/L (3.5-5.1); Total Protein 9.3 g/dL (6.4-8.2)
[2017-10-27 14:16] LABS: Band Neutrophils % (manual) 2; Eosinophils % (manual) 6 (0-7); Lymphocytes % (manual) 16 (10.0-50.0); Monocytes % (manual) 6 (0-12); Reactive Lymphocytes 1
== END 2017-10-27 15:07 | disposition home or self-care (01) ==
LOC: ER 08:56
DX: M19.011 Primary osteoarthritis, right shoulder (principal); E43 Unspecified severe protein-calorie malnutrition; J44.9 Chronic obstructive pulmonary disease, unspecified; I11.0 Hypertensive heart disease with heart failure; I50.9 Heart failure, unspecified; Z79.82 Long term (current) use of aspirin; Z79.899 Other long term (current) drug therapy; Z68.42 Body mass index [BMI] 45.0-49.9, adult
CPT/HCPCS: 36415; 73020; 73030; 73200; 80053; 85007; 85027; 96374; 96375; 99285; J1170; J2270

== ENCOUNTER 2022-03-25 18:50 | Inpatient (IN) | payer MEDICARE, OTHER ==
[~2022-03-25] VITALS: Ht 160 cm; Wt 68.4 kg
[~2022-03-25 18:50] MED LIST changes: -ALBU1SYP PO; +ALBU2SYP10 PO; +ASPI-543 PO; -ASPI81TA27 PO; +CYCL-839 PO; -CYCL1TAB18 PO; +LISI-716 PO; -LISI10TA6 PO; +POTA-220 PO; -POTA20TA53 PO; +SPIR25TA8 PO; -SPIR25TA89 PO
[2022-03-25 20:27] LABS: Basophils # (auto) 0 10 ^3/uL (0-0.2); Basophils % (auto) 0.3 % (0.0-2.0); Eosinophils # (auto) 0.1 10 ^3/uL (0-0.8); Eosinophils % (auto) 2.1 % (0.0-7.0); Hemoglobin 10.9 g/dL (12.2-16.2); Lymphocytes # (auto) 0.4 10 ^3/uL (0.4-5.4); Lymphocytes % (auto) 8.3 % (10.0-50.0); Mean Corpuscular Hemoglobin 29.6 pg (28.0-32.0); Mean Corpuscular Volume 92.6 fL (80.0-100.0); Monocytes # (auto) 0.5 10 ^3/uL (0-1.3); Monocytes % (auto) 9.4 % (0.0-12.0); Neutrophils # (auto) 4.1 10 ^3/uL (1.6-8.6); Neutrophils % (auto) 79.9 % (37.0-80.0); Nucleated Red Blood Cells % 0.1 %; Red Blood Cells 3.67 10^6/uL (4.0-5.20); Red Cell Distribution Width 14.1 % (11.8-14.3); White Blood Cell 5.1 10^3/uL (4.4-10.8)
[2022-03-25 20:44] LABS: Albumin 2.4 g/dL (3.4-5.0); BUN/Creatinine Ratio 27.5; Calcium 9.2 mg/dL (8.5-10.1); Potassium 4.8 mmol/L (3.5-5.1)
[2022-03-25 20:47] LABS: Bilirubin, Total 0.4 mg/dL (0.2-1.0); Total Protein 8.3 g/dL (6.4-8.2)
[2022-03-25] MEDS ORDERED: IOHEXOL 350 MG/ML 100ML IJ ONE (21:36)
[2022-03-25] MEDS ORDERED: methylPREDNISolone SOD SUCC 125 MG/2 ML VL IV ONE (23:15)
[2022-03-25] MEDS ORDERED: cefTRIAXone 1GM/50ML D5W 50 ML IV ONE (23:15)
[2022-03-25] MEDS ORDERED: MORPHINE SULFATE INJ 2 MG/ml SYRG IV ONE (23:15)
[2022-03-25] MEDS ORDERED: AZITHROMYCIN 500MG/ 250ML 250 ML IV ONE (23:15)
[2022-03-25] MEDS ORDERED: ALBUTEROL SULF 2.5 MG/0.5ML(0.5%) NEB SOLN NEB ONE (23:15)
[2022-03-25] MEDS ORDERED: ALBUTEROL MEDNEB 2.5 mg/3ml NEB ONE (23:22)
[2022-03-26] MEDS ORDERED: ALBUTEROL SULF 2.5 MG/0.5ML(0.5%) NEB SOLN NEB PRN (00:30)
[2022-03-26] MEDS ORDERED: ACETAMINOPHEN 325 MG TAB PO PRN (00:30)
[2022-03-26] MEDS ORDERED: ALBUMIN 25% 100 ML IV ONE (00:30)
[2022-03-26] MEDS ORDERED: IPRATROPIUM BROM 0.5 MG/2.5ML INH SOL NEB PRN (00:30)
[2022-03-26] MEDS ORDERED: DOCUSATE SOD 100 MG CAP PO PRN (00:30)
[2022-03-26 00:54] VITALS: BP 138/74
[2022-03-26] MEDS ORDERED: MORPHINE SULFATE INJ 2 MG/ml SYRG IV PRN (02:15)
[2022-03-26] MEDS ORDERED: NITROGLYCERIN 0.4 MG SL TAB SL PRN (02:15)
[2022-03-26] MEDS ORDERED: LORA0.5T20 PO (04:10)
[2022-03-26] MEDS ORDERED: RISP0.5T17 PO (04:11)
[2022-03-26] MEDS ORDERED: BUSP15TA60 PO (04:15)
[2022-03-26] MEDS ORDERED: HYDR-4798 PO (04:15)
[2022-03-26] MEDS: HYDROcodone-ACET 5/325MG TAB PO PRN ×2 (05:58→19:59)
[2022-03-26 06:01] LABS: Basophils # (auto) 0 10 ^3/uL (0-0.2); Basophils % (auto) 0.1 % (0.0-2.0); Eosinophils # (auto) 0 10 ^3/uL (0-0.8); Eosinophils % (auto) 0.1 % (0.0-7.0); Hematocrit 31.2 % (36.0-46.0); Hemoglobin 10.1 g/dL (12.2-16.2); Lymphocytes # (auto) 0.4 10 ^3/uL (0.4-5.4); Lymphocytes % (auto) 7.5 % (10.0-50.0); Mean Corpuscular Hemoglobin 30.3 pg (28.0-32.0); Mean Corpuscular Hgb Conc. 32.2 g/dL (32.0-36.0); Mean Corpuscular Volume 93.9 fL (80.0-100.0); Monocytes # (auto) 0 10 ^3/uL (0-1.3); Monocytes % (auto) 0.8 % (0.0-12.0); Neutrophils # (auto) 4.4 10 ^3/uL (1.6-8.6); Neutrophils % (auto) 91.5 % (37.0-80.0); Red Blood Cells 3.33 10^6/uL (4.0-5.20); Red Cell Distribution Width 13.6 % (11.8-14.3); White Blood Cell 4.8 10^3/uL (4.4-10.8)
[2022-03-26] MEDS: methylPREDNISolone SOD SUCC 40 MG/ML VL IV SCH ×3 (06:07→22:20)
[2022-03-26] MEDS: SODIUM CHLOR 0.9% PF (SALINE LOCK) 10ML VIAL/SYR IV SCH ×3 (06:07→22:22)
[2022-03-26] MEDS: DOXYCYCLINE 100MG/250ML 250 ML IV SCH ×2 (06:16→13:09)
[2022-03-26] MEDS: HEPARIN SODIUM (PORCINE) 5000 UNITS/ML 1ML VIAL SC SCH ×3 (06:23→22:21)
[2022-03-26 06:41] LABS: Potassium 5.1 mmol/L (3.5-5.1)
[2022-03-26 07:00] LABS: Albumin 2.4 g/dL (3.4-5.0); Bilirubin, Total 0.3 mg/dL (0.2-1.0); Calcium 8.4 mg/dL (8.5-10.1); Total Protein 7.2 g/dL (6.4-8.2)
[2022-03-26] MEDS ORDERED: AZITHROMYCIN 500MG/ 250ML 250 ML IV SCH (10:00)
[2022-03-26] MEDS: ASPirin 81 mg TAB PO SCH ×2 (10:46→10:59)
[2022-03-26] MEDS: FAMOTIDINE (10MG/ML) 2ML VL IV SCH ×2 (10:46→22:20)
[2022-03-26] MEDS ORDERED: LISINOPRIL 10 MG TAB PO ONE (13:30)
[2022-03-26 18:18] LABS: Urine Bacteria NONE SEEN /hpf (None Seen); Urine Blood 2+ /uL (Negative); Urine Hyaline Cast FEW /lpf (0 - 2); Urine Specific Gravity 1.026 (1.001-1.035); Urine WBC 3 /hpf (0 - 5)
[2022-03-26] MEDS: Ensure HIGH Protein Chocolate 8oz Bottle PO SCH (18:41)
[2022-03-26] MEDS: FUROSEMIDE 20 MG TAB PO SCH (18:56)
[2022-03-26] MEDS: busPIRone HCL 10 MG TAB PO SCH (22:17)
[2022-03-26] MEDS: CARVEDILOL 3.125 MG TAB PO SCH (22:20)
[2022-03-27] MEDS: DOXYCYCLINE 100MG/250ML 250 ML IV SCH ×2 (00:38→12:17)
[2022-03-27] MEDS: ONDANSETRON HCL 4 MG/2 ML VIAL IV PRN ×2 (03:09→12:16)
[2022-03-27] MEDS: LEVOTHYROXINE SODIUM 25 MCG TAB PO SCH (05:50)
[2022-03-27] MEDS: FUROSEMIDE 20 MG TAB PO SCH (05:51)
[2022-03-27] MEDS: HEPARIN SODIUM (PORCINE) 5000 UNITS/ML 1ML VIAL SC SCH ×3 (05:52→22:32)
[2022-03-27] MEDS: methylPREDNISolone SOD SUCC 40 MG/ML VL IV SCH ×3 (05:52→22:31)
[2022-03-27 06:07] LABS: Basophils # (auto) 0 10 ^3/uL (0-0.2); Basophils % (auto) 0.1 % (0.0-2.0); Eosinophils # (auto) 0 10 ^3/uL (0-0.8); Hematocrit 30.4 % (36.0-46.0); Lymphocytes # (auto) 0.4 10 ^3/uL (0.4-5.4); Lymphocytes % (auto) 8.7 % (10.0-50.0); Mean Corpuscular Hemoglobin 29.9 pg (28.0-32.0); Mean Corpuscular Hgb Conc. 32.8 g/dL (32.0-36.0); Mean Corpuscular Volume 91.2 fL (80.0-100.0); Monocytes # (auto) 0.1 10 ^3/uL (0-1.3); Monocytes % (auto) 2.8 % (0.0-12.0); Neutrophils # (auto) 4.3 10 ^3/uL (1.6-8.6); Neutrophils % (auto) 88.4 % (37.0-80.0); Nucleated Red Blood Cells % 0.1 %; Red Blood Cells 3.33 10^6/uL (4.0-5.20); Red Cell Distribution Width 13.8 % (11.8-14.3); White Blood Cell 4.8 10^3/uL (4.4-10.8)
[2022-03-27] MEDS: SODIUM CHLOR 0.9% PF (SALINE LOCK) 10ML VIAL/SYR IV SCH ×3 (06:09→22:31)
[2022-03-27 06:28] LABS: Albumin 2.2 g/dL (3.4-5.0); Calcium 8.5 mg/dL (8.5-10.1); Potassium 4.2 mmol/L (3.5-5.1)
[2022-03-27 06:30] LABS: BUN/Creatinine Ratio 32.9
[2022-03-27 06:33] LABS: Bilirubin, Total 0.3 mg/dL (0.2-1.0); Total Protein 6.9 g/dL (6.4-8.2)
[2022-03-27] MEDS: Ensure HIGH Protein Chocolate 8oz Bottle PO SCH ×3 (08:00→18:02)
[2022-03-27 09:50] VITALS: BP 127/50
[2022-03-27] MEDS ORDERED: METHADONE HCL 10 MG TAB PO SCH (10:00)
[2022-03-27] MEDS: FAMOTIDINE (10MG/ML) 2ML VL IV SCH ×2 (11:56→22:31)
[2022-03-27] MEDS: ASPirin 81 mg TAB PO SCH (11:57)
[2022-03-27] MEDS: LISINOPRIL 10 MG TAB PO SCH (11:58)
[2022-03-27] MEDS: busPIRone HCL 10 MG TAB PO SCH ×2 (11:58→22:32)
[2022-03-27] MEDS: CARVEDILOL 3.125 MG TAB PO SCH ×2 (12:00→22:32)
[2022-03-27] MEDS: SPIRONOLACTONE 25 MG TAB PO SCH (12:02)
[2022-03-27] MEDS: POTASSIUM CHL 20 Meq TABLET PO SCH (12:04)
[2022-03-27 13:00] VITALS: BP 120/69
[2022-03-27 16:27] VITALS: BP 140/73
[2022-03-27] MEDS ORDERED: FUROSEMIDE 40 MG TAB PO SCH (18:00)
[2022-03-27 22:00] VITALS: BP 161/78
[2022-03-28] MEDS: DOXYCYCLINE 100MG/250ML 250 ML IV SCH ×3 (00:09→23:59)
[2022-03-28 04:55] VITALS: BP 150/69
[2022-03-28] MEDS: SODIUM CHLOR 0.9% PF (SALINE LOCK) 10ML VIAL/SYR IV SCH ×3 (06:47→22:23)
[2022-03-28] MEDS: methylPREDNISolone SOD SUCC 40 MG/ML VL IV SCH ×3 (06:47→22:23)
[2022-03-28] MEDS: LEVOTHYROXINE SODIUM 25 MCG TAB PO SCH (06:48)
[2022-03-28] MEDS: HEPARIN SODIUM (PORCINE) 5000 UNITS/ML 1ML VIAL SC SCH ×3 (06:48→22:24)
[2022-03-28 07:30] VITALS: BP 146/44
[2022-03-28 08:46] LABS: BUN/Creatinine Ratio 33.7; Calcium 8.8 mg/dL (8.5-10.1); Potassium 3.7 mmol/L (3.5-5.1)
[2022-03-28] MEDS: ONDANSETRON HCL 4 MG/2 ML VIAL IV PRN ×2 (10:08→15:46)
[2022-03-28] MEDS: FAMOTIDINE (10MG/ML) 2ML VL IV SCH ×2 (10:08→22:23)
[2022-03-28] MEDS: busPIRone HCL 10 MG TAB PO SCH ×2 (10:09→22:23)
[2022-03-28] MEDS: Ensure HIGH Protein Chocolate 8oz Bottle PO SCH ×3 (10:09→17:51)
[2022-03-28] MEDS: ASPirin 81 mg TAB PO SCH (10:09)
[2022-03-28] MEDS: SPIRONOLACTONE 25 MG TAB PO SCH (10:09)
[2022-03-28] MEDS: CARVEDILOL 3.125 MG TAB PO SCH ×2 (10:10→22:24)
[2022-03-28] MEDS: LISINOPRIL 10 MG TAB PO SCH (10:10)
[2022-03-28] MEDS: POTASSIUM CHL 20 Meq TABLET PO SCH (10:25)
[2022-03-28] MEDS ORDERED: ZOLPIDEM TARTRATE 5 MG TAB PO PRN (12:00)
[2022-03-28 13:00] VITALS: BP 146/44
[2022-03-28] MEDS: HYDROcodone-ACET 5/325MG TAB PO PRN (15:46)
[2022-03-28 17:00] VITALS: BP 137/62
[2022-03-28] MEDS: LORazepam 0.5 MG TAB PO PRN (17:51)
[2022-03-28 19:21] VITALS: BP 137/62
[2022-03-28 22:00] VITALS: BP 152/65
[2022-03-29 05:00] VITALS: BP 139/84
[2022-03-29] MEDS: methylPREDNISolone SOD SUCC 40 MG/ML VL IV SCH ×2 (06:16→14:12)
[2022-03-29] MEDS: LEVOTHYROXINE SODIUM 25 MCG TAB PO SCH (06:16)
[2022-03-29] MEDS: SODIUM CHLOR 0.9% PF (SALINE LOCK) 10ML VIAL/SYR IV SCH ×2 (06:16→14:12)
[2022-03-29] MEDS: HEPARIN SODIUM (PORCINE) 5000 UNITS/ML 1ML VIAL SC SCH ×2 (06:17→14:13)
[2022-03-29 08:00] VITALS: BP 175/81
[2022-03-29] MEDS: Ensure HIGH Protein Chocolate 8oz Bottle PO SCH ×3 (08:30→18:00)
[2022-03-29] MEDS: LORazepam 0.5 MG TAB PO PRN ×2 (08:34→14:12)
[2022-03-29 09:00] VITALS: BP 162/78
[2022-03-29] MEDS: FAMOTIDINE (10MG/ML) 2ML VL IV SCH (09:06)
[2022-03-29] MEDS: ASPirin 81 mg TAB PO SCH (09:06)
[2022-03-29] MEDS: ONDANSETRON HCL 4 MG/2 ML VIAL IV PRN (09:06)
[2022-03-29] MEDS: SPIRONOLACTONE 25 MG TAB PO SCH (09:07)
[2022-03-29] MEDS: LISINOPRIL 10 MG TAB PO SCH (09:07)
[2022-03-29] MEDS: POTASSIUM CHL 20 Meq TABLET PO SCH (09:07)
[2022-03-29] MEDS: busPIRone HCL 10 MG TAB PO SCH (09:07)
[2022-03-29] MEDS: CARVEDILOL 3.125 MG TAB PO SCH (09:08)
[2022-03-29] MEDS: HYDROcodone-ACET 5/325MG TAB PO PRN ×2 (10:31→15:56)
[2022-03-29 12:05] VITALS: BP 171/106
[2022-03-29] MEDS ORDERED: PRED20TA2 PO (12:10)
[2022-03-29] MEDS ORDERED: DOXY-286 PO (12:10)
[2022-03-29] MEDS ORDERED: hydrALAZINE HCL 20 MG/ML VL IV ONE (12:15)
[2022-03-29] MEDS: DOXYCYCLINE 100MG/250ML 250 ML IV SCH (13:00)
[2022-03-29] MEDS ORDERED: ALBUTEROL MEDNEB 2.5 mg/3ml NEB NEB PRN (13:15)
[2022-03-29] MEDS ORDERED: cloNIDine HCL 0.1 MG TAB PO ONE (16:00)
[2022-03-29] MEDS ORDERED: DOXYCYCLINE 100 MG TAB/CAP PO SCH (22:00)
== END 2022-03-29 18:35 | disposition home or self-care (01) | DRG 137 ==
LOC: ER 18:50 → TELE 03-26 02:13 → TELE-WESTW 03-27 09:28
PROVIDERS: ADMIT Nurse Practitioner Family; ATTEND Family Medicine
DX: J15.6 Pneumonia due to other Gram-negative bacteria (principal); J96.21 Acute and chronic respiratory failure with hypoxia; F03.A0 Unspecified dementia, mild, without behavioral disturbance, psychotic disturbance, mood disturbance, and anxiety; I50.9 Heart failure, unspecified; J44.0 Chronic obstructive pulmonary disease with (acute) lower respiratory infection; E66.9 Obesity, unspecified; I11.0 Hypertensive heart disease with heart failure; J44.1 Chronic obstructive pulmonary disease with (acute) exacerbation; E03.9 Hypothyroidism, unspecified; Z51.5 Encounter for palliative care; Z82.49 Family history of ischemic heart disease and other diseases of the circulatory system; Z83.3 Family history of diabetes mellitus; Z68.30 Body mass index [BMI] 30.0-30.9, adult; Z87.891 Personal history of nicotine dependence; Z88.0 Allergy status to penicillin; Z81.8 Family history of other mental and behavioral disorders
CPT/HCPCS: 36415; 36600; 71045; 71275; 80048; 80053; 81001; 82140; 82553; 82805; 83605; 83880; 84484; 85025; 85379; 87081; 87426; 93306; 93971; 94640; 96365; 96366; 96375; G0378; J0696; J2405; J3490